=== PATIENT | male | born 1985 | race Caucasian/White ===

== ENCOUNTER 2017-12-31 17:21 | Observation (INO) | payer BC ==
[2017-12-31 19:41] LABS: ABS Basophils 0.1 10^3/ul (0-0.2); ABS Eosinophils 0.1 10^3/ul (0-0.6); ABS Lymphocytes 1.2 10^3/ul (1.0-4.8); ABS Neutrophils 9.7 10^3/ul (1.5-7.7); ABS Nucleated RBC 0.1 10^3/ul; Eosinophil % 0.8 % (0-6); Hematocrit 43 % (42-52); Hemoglobin 14.7 g/dl (14.0-18.0); Lymphocyte % 10.3 % (25-47); Mean Corpuscular HGB Conc 34 g/dl (31-36); Mean Corpuscular Hemoglobin 29 pg (27-31); Mean Corpuscular Volume 86 fL (80-94); Mean Platelet Volume 7.6 um3 (7.4-10.4); Nucleated Red Blood Cells % 0.5; Platelet Count 308 10^3/ul (150-450); Red Blood Count 5.02 10^6/ul (4.00-5.40); Red Cell Distribution Width 13 % (10.5-15); White Blood Count 12.1 10^3/ul (3.5-10.8)
--- NOTE | 2017-12-31 19:50 | ED ---
HPI Chest Pain - HPI Summary HPI Summary: This is gerson Luna documenting for attending Charanjit Garcia MD. This patient is a 32 year old M presenting to [facility] with a chief complaint of sharp chest wall pain since 5-6 days ago. The patient reports coughing up red phlegm this morning. The patient notes that his pain started in left side and has radiated to lower back, lower right chest, and upper right chest. The patient notes that the pain has worsened in the last few days. The patient rates the pain 7/10 in severity. Symptoms aggravated by lying down, coughing and deep breaths. Symptoms alleviated by nothing. Patient reports cough, shortness of breath, fever, chills, and lightheadedness. Patient denies nausea or vomiting. The patient was seen at Urgent Care last week after the 2nd day of pain and has been taking muscle relaxers for the pain. He reports that the muscle relaxers initially helped but have not been able to alleviate his symptoms in the last few days. Patient has hx of DVT following an ACL surgery. - History of Current Complaint Chief Complaint: EDChestWallPain Time Seen by Provider: 12/31/17 19:30 Hx Obtained From: Patient Onset/Duration: Started Days Ago - 5-6 days, Atraumatic, Still Present Timing: Constant Initial Severity: Mild Current Severity: Moderate Pain Intensity: 7 Pain Scale Used: 0-10 Numeric Chest Pain Location: Diffuse Chest Pain Radiates: Yes Chest Pain Radiates To:: Back - lower back Character: Burning, Sharp/Stabbing Aggravating Factor(s): Position - lying down, Deep Breaths, Other: - cough Alleviating Factor(s): Nothing Associated Signs and Symptoms: Positive: Chest Pain, Shortness of Breath, Fever , Chills, Lightheadedness, Cough, Productive Cough, Bloody Sputum. Negative: Nausea, Vomiting - Allergy/Home Medications Allergies/Adverse Reactions: Allergies Allergy/AdvReac Type Severity Reaction Status Date / Time cefaclor [From [facility]] Allergy Unknown Verified 12/31/17 19:29 Reaction Details ibuprofen Allergy Hives Verified 12/31/17 19:29 Home Medications: Home Medications NK [No Home Medications Reported] 12/31/17 [History Confirmed 12/31/17] PMH/Surg Hx/FS Hx/Imm Hx Endocrine/Hematology History: Denies: Hx Diabetes Cardiovascular History: Reports: Hx Deep Vein Thrombosis - follow ACL surgery Respiratory History: Denies: Hx Chronic Obstructive Pulmonary Disease (COPD) EENT History: Denies: Hx Deafness - Surgical History Surgery Procedure, Year, and Place: ACL surgery - Immunization History Date of Tetanus Vaccine: unk Date of Influenza Vaccine: unk Infectious Disease History: No Infectious Disease History: Reports: Traveled Outside the [place] in Last 30 Days - [place] - Family History Known Family History: Positive: None - patient denies any FHx - Social History Alcohol Use: Occasionally Substance Use Type: Reports: Marijuana - occasional use Smoking Status (MU): Never Smoked Tobacco Review of Systems Positive: Fever, Chills Positive: Chest Pain Positive: Shortness Of Breath, Cough, Other - bloody sputum Negative: Vomiting, Nausea Neurological: Other - lightheadedness All Other Systems Reviewed And Are Negative: Yes Physical Exam - Summary Physical Exam Summary: Appearance: Well-appearing, Well-nourished, lying in bed comfortably Skin: Warm, dry, no obvious rash, no surface signs of inflammation, no rashes Eyes: sclera anicteric, no conjunctival pallor ENT: mucous membranes moist, pharynx appears normal Neck: Supple, nontender Respiratory: No signs of respiratory distress, right basilar rhonchi Cardiovascular: Normal S1, S2. No murmurs. Normal distal pulses in tibial and radial bilaterally. Abdomen: Soft, nontender, normal active bowel sounds present Musculoskeletal: Normal, Strength/ROM Intact Neurological: A&Ox3, awake and alert, mentation is normal, speech is fluent and appropriate Psychiatric: affect is normal, does not appear anxious or depressed Triage Information Reviewed: Yes Vital Signs On Initial Exam: Initial Vitals Temp Pulse Resp BP Pulse Ox 98.7 F 101 16 133/76 96 12/31/17 18:00 12/31/17 18:00 12/31/17 18:00 12/31/17 18:00 12/31/17 18:00 Vital Signs Reviewed: Yes Diagnostics - Vital Signs Vital Signs Temp Pulse Resp BP Pulse Ox 12/31/17 18:00 98.7 F 101 16 133/76 96 - Laboratory Lab Results: Lab Results 12/31/17 Range/Units 19:31 WBC 12.1 H (3.5-10.8) 10^3/ul RBC 5.02 (4.00-5.40) 10^6/ul Hgb 14.7 (14.0-18.0) g/dl Hct 43 (42-52) % MCV 86 (80-94) fL MCH 29 (27-31) pg MCHC 34 (31-36) g/dl RDW 13 (10.5-15) % Plt Count 308 (150-450) 10^3/ul MPV 7.6 (7.4-10.4) um3 Neut % (Auto) 79.9 (38-83) % Lymph % (Auto) 10.3 L (25-47) % Whiteside % (Auto) 8.5 H (0-7) % Eos % (Auto) 0.8 (0-6) % Baso % (Auto) 0.5 (0-2) % Absolute Neuts (auto) 9.7 H (1.5-7.7) 10^3/ul Absolute Lymphs (auto) 1.2 (1.0-4.8) 10^3/ul Absolute Monos (auto) 1.0 H (0-0.8) 10^3/ul Absolute Eos (auto) 0.1 (0-0.6) 10^3/ul Absolute Basos (auto) 0.1 (0-0.2) 10^3/ul Absolute Nucleated RBC 0.1 10^3/ul Nucleated RBC % 0.5 Result Diagrams: 12/31/17 19:31 12/31/17 19:31 Lab Statement: Any lab studies that have been ordered have been reviewed, and results considered in the medical decision making process. - Radiology CXR Xray Interpretation: Positive (See Comments) - IMPRESSION: INTERSTITIAL PROMINENCE, LIKELY INTERSTITIAL EDEMA, WITH BIBASILAR INFILTRATES AND PLEURAL EFFUSIONS. Dr. Garcia has reviewed this report Radiology Interpretation Completed By: Radiologist - CT Chest/thorax CTA CT Interpretation: Positive (See Comments) - Impression: 1) moderate amount of clot located in the left lower lobe pulmonary artery. This is associated with consolidation and volume loss of the left lower lung. Moderate size left pleural effusion. 2) There is clot located in the right lower lobe pulmonary arteries in which there are areas of atelectasis as well as a small pleural effusion. An area of atelectasis is also seen in the right middle lung. 3) No heart strain. Dr. Garcia has reviewed this report. CT Interpretation Completed By: Radiologist - EKG 19:48 Cardiac Rate: Tachycardia - at 100 bpm EKG Rhythm: Sinus Tachycardia ST Segment: Normal Ectopy: None Chest Pain Course/Dx - Diagnoses Provider Diagnoses: Bilateral pulmonary embolism - Provider Notifications Discussed Care Of Patient With: Fanta Puckett Time Discussed With Above Provider: 20:32 Instructed by Provider To: Admit As Inpatient Discharge - Sign-Out/Discharge Documenting (check all that apply): Patient Departure - Discharge Plan Condition: Stable Disposition: ADMITTED TO [facility] - Billing Disposition and Condition Condition: STABLE Disposition: Admitted to [facility]
--- NOTE | 2017-12-31 19:51 | RAD ---
INDICATION: Hemoptysis COMPARISON: None TECHNIQUE: PA and lateral dual-energy views were obtained. FINDINGS: Bones/Soft Tissues: There are no acute bony findings. Cardiomediastinal: The heart is normal in size. Interstitium is prominent. Consider interstitial congestion in the appropriate setting.. Lungs: There are bibasilar interstitial infiltrates. Pleura: Bilateral pleural effusions. Other: None IMPRESSION: INTERSTITIAL PROMINENCE, LIKELY INTERSTITIAL EDEMA, WITH BIBASILAR INFILTRATES AND PLEURAL EFFUSIONS.
[2017-12-31] MEDS ORDERED: Azithromycin IV(*) 500 MG in NS 0.9% 250 ML* 250 ML IVPB ONE (19:59)
[2017-12-31] MEDS ORDERED: Iohexol 350* (CONTRAST) 500 ML MDV IV ONE (20:16)
[2017-12-31] MEDS ORDERED: NS 0.9% 1000 ML* 2,000 ML IV ONE (20:29)
[2017-12-31] MEDS ORDERED: Ketorolac INJ* 15 MG/ML 1 ML VIAL ONE (20:48)
[2017-12-31] MEDS ORDERED: Morphine VIAL* 4 MG/ML VIAL (1 ml vial) IV ONE (20:52)
[2017-12-31] MEDS ORDERED: Morphine VIAL* 10 MG/ML 1 ML VIAL ONE (20:57)
[2017-12-31] MEDS ORDERED: Morphine VIAL* 4 MG/ML VIAL (1 ml vial) IV PRN (21:19)
[2017-12-31] MEDS ORDERED: Ondansetron INJ* 2 MG/ML VIAL IV PRN (21:19)
[2017-12-31] MEDS ORDERED: HYDROmorphone INJ* 1 MG/ML CARPUJECT SYRINGE IV SLOW PU ONE (21:30)
[2017-12-31] MEDS ORDERED: NS 0.9% 1000 ML* 1,000 ML IV SCH (21:30)
[2017-12-31] MEDS ORDERED: Heparin VIAL(*) 5000 UNITS/ML VIAL (FIVE THOUSAND) SUBCUT SCH (22:00)
[2017-12-31 22:39] LABS: Urine Appearance Clear; Urine Blood 3+ (Negative); Urine Color Yellow; Urine Ketones Negative (Negative); Urine Protein Negative (Negative); Urine Red Blood Cell 1+(3-5/hpf) (Absent); Urine Specific Gravity 1.013 (1.010-1.030); Urine Urobilinogen Negative (Negative); Urine White Blood Cell Trace(0-5/hpf) (Absent)
[2018-01-01] MEDS: Levofloxacin 750 MG IVPREMIX(* 750 MG/150 ML BAG IVPB SCH ×2 (00:29→23:50)
[2018-01-01] MEDS: Enoxaparin(*) 100 MG/ML SYR SUBCUT SCH ×3 (00:30→21:40)
--- NOTE | 2018-01-01 02:40 | HP ---
HISTORY AND PHYSICAL: DATE OF ADMISSION: 12/31/17 PRIMARY CARE PHYSICIAN: None. ATTENDING PHYSICIAN WHILE IN THE PRINCIPAL: Fanta Puckett DO * (report dictated by Vahid Chan NP). CHIEF COMPLAINT: 1. Chest discomfort. 2. Epigastric pain. HISTORY OF PRESENT ILLNESS: Mr. Benjamin is a 32-year-old male patient, who has a history of DVT following ACL repair several years ago and this is only his medical history. He does not take medications, and he does not typically see a primary care provider. He comes in to the ED today. He says he has been having some chest discomfort. In addition, he has feeling of sharp stabbing pain in the epigastric area. Now, it is mostly localized to his left chest. He states he feels tight like things are pulling into his left shoulder. He states he has been having chills but he has not been having any documented fevers that he knows of. He does state that he lost maybe about 10 pounds over the last couple of weeks. He was in [facility] and he says he was doing a lot of walking. He recently flew to [facility] and spent two weeks there and then he flew back and he was over there for his sister's wedding. He is coming in today because the discomfort just was not getting better. He was concerned, because of this, he says, he also did cough up some blood today. He says to his knowledge he has not been around anybody sick. He has not been having any diarrhea, no vomiting. He says his lower abdominal pain is mostly in the epigastric area, his left chest, left shoulder area. He was concerned because the pain just was not getting any better, it is worse when he tries to lie flat. He came in to our emergency department today, he was evaluated. The patient was ultimately found to have an elevated white count. It was also noted that he had a bump in troponin, his lactic acid was high. He had bilateral effusion that was concerning for possible infection versus PEs. We were asked to evaluate for admission. PAST MEDICAL HISTORY: Significant for DVT after an orthopedic procedure. PAST SURGICAL HISTORY: He has had a cyst removal to his neck. He has had a right knee ACL repair x2, recent tonsillectomy. HOME MEDICATIONS: Denied. ALLERGIES TO MEDICATIONS: Include CECLOR and IBUPROFEN. FAMILY HISTORY: He denies his parents having history of blood clotting disorder , strokes, heart attacks. Reviewed and was noncontributory. SOCIAL HISTORY: He does smoke marijuana occasionally. He drinks alcohol occasionally. He does not smoke cigarettes. He denies any illicit drug use. He is not , has no children. Surrogate decision makers are his parents. REVIEW OF SYSTEMS: There is no documented fever. He does admit to having chills. He does admit to having 10-pound weight loss over the 2 weeks. Denies having any double vision. There is no ear discharge. He denies having any rhinorrhea. There was no sore throat or thyroid enlargement. He does admit to having chest pressure per my HPI. Denies having any abdominal pain. He denies having any nausea or vomiting. There has been no dysuria, no frequency. There has been no seizure, no loss of consciousness, no pruritus, and no skin ulcerations. Review of 14 systems was completed, all others negative. PHYSICAL EXAMINATION GENERAL: At this time, Mr. Benjamin is a 32-year-old male patient. He is sitting in the ED stretcher. He does not appear to be in any acute distress. He appears to be well nourished, well developed. VITAL SIGNS: Blood pressure 141/93, pulse 102, respirations 17, O2 sat 96%, temperature 98.7. HEENT: Head: Atraumatic and normocephalic. Eyes: EOMs are intact. Sclerae anicteric and not pale. Throat: Oral mucosa appears moist. No oropharyngeal erythema. NECK: Supple. LUNGS: Clear but they are diminished in the bases. No wheezes, rales, or rhonchi. HEART: Sounds S1, S2. He had a regular rate and rhythm. No murmurs, rubs, or gallops. ABDOMEN: Soft, flat, nontender. Bowel sounds were present. EXTREMITIES: Pulses were 2+ throughout. He is moving all four extremities. He had no peripheral edema. He had 5/5 strength. No calf tenderness. NEUROLOGIC: He is awake, alert, and oriented x3. Speech is clear. Tongue is midline. No gross focal deficits. SKIN: Intact. DIAGNOSTIC STUDIES/LABORATORY DATA: WBC of 12.1, RBC of 5.02, hemoglobin of 14.7, hematocrit of 43, platelet count of 308. Sodium 137, potassium 3.9, chloride 95, bicarb 31. BUN 11 and creatinine of 0.88. Glucose 156. Lactate was 3.2. Calcium 9.7. Total bili 1.2, AST 21, ALT 30, alk phos 48. Troponin 0.04. CRP pending. Albumin 3.9. He did have a chest x-ray obtained today, when I reviewed it, I do appreciate bilateral pleural effusion. Radiology is reading this as interstitial prominence likely interstitial edema with bibasilar infiltrates and pleural effusions. He did have an EKG obtained today. I do not have a previous EKG for comparison , but the EKG today is showing a normal sinus rhythm. He does have what appears to be LVH. He had no ST elevation with exception in V1 only, which is slight. He had no T-wave inversions. No previous EKGs for comparison. Old medical records were reviewed. ASSESSMENT AND PLAN: Mr. Benjamin is a 32-year-old male patient coming into the emergency department today with complaints of chest discomfort, not feeling well, also having epigastric discomfort. On evaluation found to have an elevated white count, troponin elevation. In addition to this, elevated lactic acid of unclear etiology and bilateral effusion. He will be admitted under observation status for: 1. Chest discomfort. I suspect this is probably related to either a pericarditis or costochondritis or possibly pleurisy related to his pulmonary process. I am concerned for the hemoptysis that he had. The plan will be to get a CT of the chest and make sure he has no pulmonary embolism that would certainly explain the troponin being elevated. It could also explain the white count, possibly the effusion. He may have pneumonia as well. Again, the CT will help us with this. I am going to put him on Levaquin empirically. He has been hydrated. I will get Legionella antigen, Strep pneumoniae antigen, sputum cultures. I will try to get blood cultures as well. I will put him on antibiotics and I will continue to follow. 2. Elevated troponin. Etiology is unclear. He is not having any active chest pain now. If he does have it, it is in the left shoulder, described as a sharp , stabbing pain. His EKG does not show signs of ischemia. At this point, we are going to trend his troponin, we will get an echo in the morning, checking ESR and CRP and we will continue to follow this. 3. History of deep vein thrombosis. I will place him on heparin subcu for prophylaxis. 4. Lactic acidosis. Etiology is unclear. He is getting hydrated. He is being placed empirically on antibiotics. We will go ahead and continue to follow. 5. Hemoptysis. Again, I think a CTA of the chest is warranted. He is undergoing that now. We will continue to follow. Depending on the findings, we just may need to consider getting Pulmonology involve. 6. Fluids, electrolytes, and nutrition. He can have regular diet. 7. Code status: Full code. TIME SPENT: Time spent on the admission was 60 minutes, greater than half the time was spent [id number] with the patient obtaining my history and physical, other half of the time was spent going over the plan of care with the patient and implementing the plan of care. I did discuss the plan of care with my attending, Dr. Puckett, she is in agreement. VAHID CHAN, LORRAINE [id number]/CPS #: [id number] MICHAEL
[2018-01-01] MEDS: Cyclobenzaprine TAB* 10 MG PO SCH ×3 (02:57→21:37)
[2018-01-01] MEDS: HYDROcodone/ACETAMIN 5-325 MG* 1 TAB PO PRN ×4 (02:58→21:35)
[2018-01-01 05:38] LABS: ABS Basophils 0.1 10^3/ul (0-0.2); ABS Eosinophils 0.1 10^3/ul (0-0.6); ABS Lymphocytes 1.6 10^3/ul (1.0-4.8); ABS Monocytes 1.1 10^3/ul (0-0.8); ABS Neutrophils 6.7 10^3/ul (1.5-7.7); ABS Nucleated RBC 0 10^3/ul; Eosinophil % 0.9 % (0-6); Hematocrit 39 % (42-52); Hemoglobin 13.4 g/dl (14.0-18.0); Lymphocyte % 16.4 % (25-47); Mean Corpuscular HGB Conc 35 g/dl (31-36); Mean Corpuscular Hemoglobin 29 pg (27-31); Mean Corpuscular Volume 84 fL (80-94); Mean Platelet Volume 7.3 um3 (7.4-10.4); Nucleated Red Blood Cells % 0.1; Platelet Count 293 10^3/ul (150-450); Red Blood Count 4.58 10^6/ul (4.00-5.40); Red Cell Distribution Width 13 % (10.5-15); White Blood Count 9.5 10^3/ul (3.5-10.8)
[2018-01-01 05:57] LABS: EGFR Non-African American 129.4 (>60)
--- NOTE | 2018-01-01 07:50 | RAD ---
INDICATION: Hemoptysis. Bilateral pleural effusions. Clinical concern for pulmonary embolism. COMPARISON: December 31, 2017 chest radiograph. TECHNIQUE: Multidetector CT images were obtained from the lung apices to the upper abdomen with 74 mL Omnipaque 350 IV contrast. Pulmonary angiogram protocol. Multiplanar reformation including with maximum intensity projection. REPORT: LEFT greater than RIGHT basilar alveolar consolidation in part due to atelectasis resulting from moderate dependent LEFT and small dependent RIGHT pleural effusions. Negative for pneumothorax. Negative for thoracic lymphadenopathy, cardiomegaly, or pericardial effusion. Accounting for motion artifact the thoracic aorta is normal. Large burden of bilateral acute pulmonary emboli with the largest burden of clot within the main LEFT lower lobe and segmental pulmonary arteries. Unremarkable images through the upper abdomen. Negative for suspicious thoracic osseous lesions or fractures. IMPRESSION: #. Large burden of acute pulmonary emboli with associated probable ischemic lung most marked involving the basilar segments of the LEFT lower lobe. Associated moderate dependent LEFT and small dependent RIGHT pleural effusions with proportional atelectasis.
--- NOTE | 2018-01-01 08:54 | PN ---
Subjective Date of Service: 01/01/18 Interval History: Complains of pain with ambulation, feeling short of breath when he walks to the bathroom, and pain in both flanks when he takes a deep breath. No cough, no documented hypoxia overnight, no fevers, no leg pain. Objective Active Medications: Hydrocodone Bitart/Acetaminophen (Dorothy 5-325 Tab*) 2 tab PO Q4H PRN PRN Reason: PAIN Last Admin: 01/01/18 02:58 Dose: 2 tab Cyclobenzaprine HCl (Flexeril Tab*) 10 mg PO Q8H [facility] Last Admin: 01/01/18 02:57 Dose: 10 mg Enoxaparin Sodium (Lovenox(*)) 90 mg SUBCUT Q12H [facility] Last Admin: 01/01/18 00:30 Dose: 90 mg Levofloxacin/Dextrose (Levaquin 750 Mg Ivpremix(*)) 750 mg in 150 mls @ 100 mls /hr IVPB Q24H [facility] Last Admin: 01/01/18 00:29 Dose: 100 mls/hr Morphine Sulfate (Morphine Vial*) 4 mg IV Q4H PRN PRN Reason: PAIN Last Admin: 01/01/18 00:04 Dose: 4 mg Ondansetron HCl (Zofran Inj*) 4 mg IV Q6H PRN PRN Reason: NAUSEA Vital Signs - 8 hr 01/01/18 01/01/18 01/01/18 01:22 02:57 02:58 Temperature Pulse Rate Respiratory 18 19 18 Rate Blood Pressure (mmHg) O2 Sat by Pulse Oximetry 01/01/18 01/01/18 01/01/18 04:03 05:56 05:57 Temperature 100.0 F Pulse Rate 106 Respiratory 16 18 18 Rate Blood Pressure 126/71 (mmHg) O2 Sat by Pulse 92 Oximetry 01/01/18 01/01/18 05:58 05:59 Temperature Pulse Rate Respiratory 18 18 Rate Blood Pressure (mmHg) O2 Sat by Pulse Oximetry Oxygen Devices in Use Now: None Appearance: alert, well appearing young man Eyes: No Scleral Icterus Ears/Nose/Mouth/Throat: NL Teeth, Lips, Gums Neck: NL Appearance and Movements; NL JVP Respiratory: Symmetrical Chest Expansion and Respiratory Effort, - - decreased breath sounds both bases, no crackles Cardiovascular: NL Sounds; No Murmurs; No JVD, RRR, - - no heaves or lifts Abdominal: NL Sounds; No Tenderness; No Distention Lymphatic: No Cervical Adenopathy Extremities: No Edema, No Clubbing, Cyanosis Skin: No Rash or Ulcers Neurological: Alert and Oriented x 3 Result Diagrams: 01/01/18 05:29 01/01/18 05:29 Additional Lab and Data: Lab Results 12/31/17 Range/Units 19:31 WBC 12.1 H (3.5-10.8) 10^3/ul RBC 5.02 (4.00-5.40) 10^6/ul Hgb 14.7 (14.0-18.0) g/dl Hct 43 (42-52) % MCV 86 (80-94) fL MCH 29 (27-31) pg MCHC 34 (31-36) g/dl RDW 13 (10.5-15) % Plt Count 308 (150-450) 10^3/ul MPV 7.6 (7.4-10.4) um3 Neut % (Auto) 79.9 (38-83) % Lymph % (Auto) 10.3 L (25-47) % Giles % (Auto) 8.5 H (0-7) % Eos % (Auto) 0.8 (0-6) % Baso % (Auto) 0.5 (0-2) % Absolute Neuts (auto) 9.7 H (1.5-7.7) 10^3/ul Absolute Lymphs (auto) 1.2 (1.0-4.8) 10^3/ul Absolute Monos (auto) 1.0 H (0-0.8) 10^3/ul Absolute Eos (auto) 0.1 (0-0.6) 10^3/ul Absolute Basos (auto) 0.1 (0-0.2) 10^3/ul Absolute Nucleated RBC 0.1 10^3/ul Nucleated RBC % 0.5 Microbiology and Other Data: Microbiology 12/31/17 22:24 Legionella Urinary Antigen - Final Urine Negative Legionella Antigen Streptococcus pneumoniae Ag Screen - Final Negative S. pneumo Antigen Assess/Plan/Problems-Billing Assessment: 32 yo man with remote history of DVT after knee surgery but otherwise healthy presented to the ED on 12/31 with shortness of breath, found to have large burden of PE. - Patient Problems (1) Pulmonary emboli Current Visit: Yes Status: Acute Code(s): I26.99 - OTHER PULMONARY EMBOLISM WITHOUT ACUTE COR PULMONALE SNOMED Code(s): 87788893 Comment: He did have a flight from [place] about 3 weeks ago, but given his otherwise active healthy lifestyle, no cigarettes, and the burden of clot, I am hesitant to call these provoked thromboemboli He has one cousin with unprovoked VTE He is currently on lovenox and tolerating well I am consulting hematology; discussed with Dr. Max He is on room air at this time but is quite limited functionally
--- NOTE | 2018-01-01 14:09 | CONS ---
AMENDED REPORT NOW INCLUDES DATE OF CONSULT - ESIGNED BEFORE ADJUSTMENT CONSULTATION REPORT: DATE OF CONSULT: 01/01/18 REASON FOR CONSULT: Pulmonary embolus. HISTORY OF PRESENT ILLNESS: A 32-year-old male with a history of DVT following ACL repair when he was 20 years old, treated briefly with anticoagulation. No thrombotic events until recently. He has generally been very healthy, he does not see a doctor on a regular basis. Approximately 1 week ago, he started to develop a spastic and cramping pain on his right side. It would come and go, exacerbated by stretching on a movement. After several days, it spread to the left side and the left pain became worse than the right. He was seen at Urgent Care and thought it was muscle cramp. He was given a muscle relaxant, which seemed to help. Over the past several days, the pain got worse and worse. 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 He has not been able to take a deep breath because breathing in would cause a pleuritic pain. Other than not being able to take a big breath, he has not noticed being short of breath. Yesterday, he had an episode of hemoptysis and that triggered coming to the emergency room. He has no extremity swelling or pain. No palpitations and no chest pressure other than the pain described. The CT scan showed a left lower lobe DVT as well as some thrombosis on the right side. He has areas of consolidation and question of pulmonary infarction. There is no thoracic lymphadenopathy. He was admitted and started on subcu Lovenox. He got his first shot of Lovenox yesterday and today he does feel better with increased ability to take a deep breath and less cramping pain. MEDICATIONS: Nothing prior to admission. He is on Lovenox 90 mg subcu q.12. ALLERGIES: None. PAST MEDICAL HISTORY: ACL repair, accompanied by DVT. PAST SURGICAL HISTORY: Tonsillectomy and knee surgery. FAMILY HISTORY: No thrombosis. No malignancy. SOCIAL HISTORY: Lives in [place], [place], was visiting [place] and [facility]. He smokes pot occasionally, but does not smoke cigarettes. He drinks socially. He is not , but has supportive parents at home. 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 REVIEW OF SYSTEMS: As noted above. Otherwise, 14 points reviewed and negative. PHYSICAL EXAM: Temperature 100.0, BP 126/71, pulse 106, sat 92%, respirations 16. HEENT: Mucosa is moist. No lesions. No lymphadenopathy. No dental disease. No JVD. Lungs: Some decreased breath sounds on the left and scattered crackles. No wheezing. He was able to take a fairly deep breath without pain. He did have oral pain medication prior to the exam. Heart: Regular rhythm, S1, S2. No murmurs or gallops. Abdomen is nontender, nondistended. No hepatosplenomegaly. Nodes: No peripheral lymphadenopathy. Extremities: No clubbing, cyanosis or edema. Good pulses x4. Neurologically, alert and oriented and grossly nonfocal. DIAGNOSTIC STUDIES/LAB DATA: CT scan as noted above. His CBC is essentially normal, hemoglobin 13.4. Chemistry showed normal renal function, normal liver function. 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 This is his second thrombosis, the first being semi-provoked after minor knee surgery. 1. Lovenox 90 subcu b.i.d. I would continue for 2 to 3 weeks until symptoms clearly improve. We will then change to Xarelto 20 mg p.o. in the evening with dinner. 2. Discussed need for long-term anticoagulation. This is idiopathic thrombosis with high risk of additional thrombosis. This is regardless of evaluation going forward. He will follow up with a software development engineer in [place] but my recommendation is for anticoagulation for indeterminate period of time. There is data for reduced dose Xarelto at 10 mg daily after 6-12 months. 3. Thrombophilia evaluation. Leiden V and prothrombin gene mutation, but we will wait until he sees his software development engineer in [place] to do this. Results will not affect decisions regarding anticoagulation. We will send a lupus anticoagulant. Protein C, protein S, and ATIII are reasonable to send at some point if he needs to be of anticoagulation for other reasons. 4. Pain will last several weeks, he can go home with p.r.n. Percocet. I would advise not traveling for at least 1 week and delaying his return to [place]. 5. Echocardiogram pending for tomorrow. I suspect he will have some amount of right heart strain and he will need followup study in 2-3 months. 6. Hematuria. We can recheck in a week or so to make sure that is resolved. Could have occult kidney stones. Will obtain a renal ultrasound. 7. We will see him in clinic next week after discharge before he returns to [place]. [id number]/[facility] #: [id number] MICHAEL
--- NOTE | 2018-01-01 16:19 | RAD ---
Indication: Hematuria. Bilateral flank pain. Comparison: No relevant prior exams available on the [facility] [place]. Technique: Renal ultrasound. Report: 10.4 x 5.6 x 5.9 cm RIGHT kidney and 12.0 x 5.4 x 5.8 cm LEFT kidney. Normal bilateral renal cortical contour and echogenicity. No conspicuous stones or hydronephrosis. No conspicuous focal renal lesions. Negative for perinephric fluid. IMPRESSION: #. Negative bilateral renal ultrasound.
[2018-01-02] MEDS: HYDROcodone/ACETAMIN 5-325 MG* 1 TAB PO PRN ×2 (06:26→10:35)
[2018-01-02] MEDS: Cyclobenzaprine TAB* 10 MG PO SCH (06:27)
--- NOTE | 2018-01-02 09:45 | ECHO ---
Patient: DEZ MEDEROS [facility] Rec#: [id number] : 1985 Date: 01/02/2018 Age: 32y Height: 187.96 cm / 74.0 in Weight: 86.18 kg / 189.9 lbs Sex: M BSA: 2.13 Room#: [facility] Admit Date#: 12/31/2017 Type: Inpatient Referring: Vahid Forbes NP Reading: Connor Hwang DO Security Orderly: Kylah Nash RDCS CC: Akash Max MD Transthoracic Echocardiogram Indication: Chest Pain, pulmonary embolism BP: 127/77 HR: 88 Rhythm: NSR Findings History: Prior DVT. Technical Comments: The study quality is good. Completed at 0930. Left Ventricle: The left ventricular chamber size is normal. There is no left ventricular hypertrophy. Global left ventricular wall motion and contractility are within normal limits. Left ventricular systolic function is at the lower limits of normal. The estimated ejection fraction is 50-55%. Normal left ventricular diastolic filling is observed. Left Atrium: The left atrial chamber size is normal. Right Ventricle: The right ventricle is slightly dilated. The right ventricular global systolic function is mildly to moderately reduced. Right Atrium: The right atrial cavity size is normal. Aortic Valve: The aortic valve is trileaflet. There is no evidence of aortic valve thickening. There is no evidence of aortic regurgitation. There is no evidence of aortic stenosis. Mitral Valve: The mitral valve leaflets do not appear thickened. There is a trace of mitral regurgitation. There is no evidence of mitral stenosis. Tricuspid Valve: The tricuspid valve leaflets are normal. There is a physiologic tricuspid regurgitation. Unable to estimate the right ventricular systolic pressure. There is no tricuspid stenosis. Pulmonic Valve: The pulmonic valve appears normal. There is a trace pulmonic regurgitation. There is no pulmonic stenosis. Pericardium: There is no significant pericardial effusion. Aorta: There is no dilatation of the ascending aorta. There is no dilatation of the aortic arch. The aortic root is normal in size. Pulmonary Artery: The main pulmonary artery is not well visualized. Venous: The inferior vena cava appears normal in size. There is a greater than 50% respiratory change in the inferior vena cava dimension. Conclusions The left ventricular chamber size is normal. There is no left ventricular hypertrophy. Left ventricular systolic function is at the lower limits of normal. The estimated ejection fraction is 50-55%. Global left ventricular wall motion and contractility are within normal limits. The left atrial chamber size is normal. The right ventricle is slightly dilated. The right ventricular global systolic function is mildly to moderately (more consistent with moderately) reduced. There is a physiologic tricuspid regurgitation. Unable to estimate the right ventricular systolic pressure. None prior for comparison at time of interpretation Measurements Name Value Normal Range RVIDd (AP) 2D 3.2 cm (0.9 - 2.6) RAd ISD 4CH 4.9 cm (3.4 - 4.9) RA (A4C)W 4.3 cm (2.9 - 4.6) IVSd (2D) 1 cm (0.6 - 1) LVPWd (2D) 1 cm (0.6 - 1) LVIDd (2D) 4.3 cm (3.6 - 5.4) LVIDs (2D) 2.6 cm - LV FS (2D) 40 % (25 - 45) Aortic Annulus 2.2 cm (1.4 - 2.6) Ao root diameter (2D) 3.4 cm (2.1 - 3.5) Ascending Ao 3 cm (2.1 - 3.4) Aortic arch 2.2 cm (1.8 - 3.4) LA dimension (AP) 2D 3.3 cm (2.3 - 3.8) LAd ISD 4CH 5.3 cm (2.9 - 5.3) LA ISD 4CH W 4.1 cm (2.5 - 4.5) Name Value Normal Range LA ESV SP 4CH (A/L) 54 ml - LA ESV SP 2CH (A/L) 67 ml - LA ESV BP (A/L) 65 ml - LA ESV BP (A/L) index 31 ml/m2 - LA ESV SP 4CH (MOD) 37 ml - LA ESV SP 2CH (MOD) 65 ml - Name Value Normal Range MV E-wave Vmax 0.58 m/sec - MV deceleration time 160.4 msec - MV A-wave Vmax 0.43 m/sec - MV E:A ratio 1.33 ratio - LV septal e' Vmax 0.11 m/sec - LV lateral e' Vmax 0.12 m/sec - LV E:e' septal ratio 5.27 ratio - LV E:e' lateral ratio 4.83 ratio - Name Value Normal Range AV Vmax 1.2 m/sec - AV VTI 18.98 cm - AV peak gradient 5.45 mmHg - AV mean gradient 3 mmHg - LVOT Vmax 1.03 m/sec - LVOT VTI 17.19 cm - LVOT peak gradient 4.27 mmHg - LVOT mean gradient 2.44 mmHg - LEDY Vmax 1.3 m/sec - Name Value Normal Range IVC diameter 1.9 cm - Name Value Normal Range PV Vmax 1.04 m/sec - PV peak gradient 4.38 mmHg -
[2018-01-02] MEDS: Enoxaparin(*) 100 MG/ML SYR SUBCUT SCH (10:35)
[2018-01-02 11:46] VITALS: BP 122/72
--- NOTE | 2018-01-02 12:37 | PN ---
Subjective Date of Service: 01/02/18 Interval History: Mr. Benjamin reports feeling much better today. He has less pain and is not requiring oxygen. He denies chest pain, nausea, or abdominal pain. Objective Active Medications: Hydrocodone Bitart/Acetaminophen ([place] 5-325 Tab*) 2 tab PO Q4H PRN Cyclobenzaprine HCl (Flexeril Tab*) 10 mg PO Q8H ANAYA Enoxaparin Sodium (Lovenox(*)) 90 mg SUBCUT Q12H ANAYA Levofloxacin/Dextrose (Levaquin 750 Mg Ivpremix(*)) 750 mg in 150 mls @ 100 mls /hr IVPB Q24H ANAYA Morphine Sulfate (Morphine Vial*) 4 mg IV Q4H PRN Ondansetron HCl (Zofran Inj*) 4 mg IV Q6H PRN Oxygen Devices in Use Now: None Appearance: Male lying in bed in NAD Eyes: No Scleral Icterus Ears/Nose/Mouth/Throat: Mucous Membranes Moist Neck: Trachea Midline Respiratory: Symmetrical Chest Expansion and Respiratory Effort, Clear to Auscultation Cardiovascular: NL Sounds; No Murmurs; No JVD, No Edema Abdominal: NL Sounds; No Tenderness; No Distention Lymphatic: No Cervical Adenopathy Extremities: No Edema Skin: No Rash or Ulcers Neurological: Alert and Oriented x 3, NL Muscle Strength and Tone Nutrition: Taking PO's Result Diagrams: 01/01/18 05:29 01/01/18 05:29 Assess/Plan/Problems-Billing Assessment: Mr. Benjamin is a 32 yo man with remote history of DVT after knee surgery but otherwise healthy presented to the ED on 12/31 with shortness of breath, found to have large burden of PE. - Patient Problems (1) Pulmonary emboli Comment: - Asymptomatic. - He did have a flight from [place] about 3 weeks ago, but given his otherwise active healthy lifestyle, no cigarettes, and the burden of clot, I am hesitant to call these provoked thromboemboli - He has one cousin with unprovoked VTE - Appreciate consultation from Dr. Max. Continue lovenox x 3 weeks, then switch to xarelto. Patient will follow up with Hematology in [place] near his home. (2) Full code status Comment: Status and Disposition: OBV. Discharge to home.
--- NOTE | 2018-01-02 22:14 | DS ---
HOSPITAL MEDICINE DISCHARGE SUMMARY: DATE OF ADMISSION: 12/31/17. DATE OF DISCHARGE: 01/02/18. PRIMARY CARE PHYSICIAN: None. ATTENDING PHYSICIAN: Dr. Haritha Fortune * (dictation provided by Coral Matos NP ). PRIMARY DIAGNOSIS: Pulmonary emboli. SECONDARY DIAGNOSIS: History of deep vein thrombosis after orthopedic procedure. MEDICATIONS AT THE TIME OF DISCHARGE: 1. Lovenox 90 mg subcutaneously b.i.d. x3 weeks. 2. Xarelto 20 mg p.o. q.p.m. to start at the end of Lovenox therapy. 3. Hydrocodone with acetaminophen 5/325, 1 tab p.o. q.4 hours p.r.n. pain (30 tabs given). HOSPITAL COURSE: Mr. Benjamin is a 32-year-old male with past medical history of DVT associated with an orthopedic procedure, who presented to the hospital on 12/31/17, with concern for chest discomfort and epigastric pain. Please see the dictated H and P from Vahid Forbes NP, for complete details. In brief, the patient stated that he had been to [facility] about 3 to 4 weeks previously on a overnight, nonstop flight. His father who is at the bedside now reports that he did describe some leg pain, but was able to walk and ambulate normally while in [facility]. In the emergency room, he reported chest pain and epigastric discomfort. He was found to have an ESR of 69, white blood cell count of 12.1. He had a lactic acid of 3.2. Troponin was 0.04 and a CRP of 168.25. He was not hypoxic, but was tachycardic with the heart rate of 102. Blood pressure was stable. He had a chest x-ray, showed "interstitial prominence, likely interstitial edema with bibasilar infiltrates and pleural effusions." Mr. Benjamin went on for chest thorax CTA to rule out possible pneumonia and/ or pleural effusion, which showed the following: "Large burden of acute pulmonary emboli with associated probable ischemic lung, most marked involving the basilar segments of the left lower lobe, associated moderate dependent left and small, dependent right pleural effusions with proportions of atelectasis." The patient was started on Lovenox b.i.d. He went on for a transthoracic echocardiogram, which showed "The left ventricular chamber size is normal. There is no left ventricular hypertrophy. The estimated ejection is 50% to 55% . The right ventricle is slightly dilated and the right ventricular global systolic function is mildly to moderately reduced. There is a physiologic tricuspid regurgitation. Unable to estimate the right ventricular systolic pressure." Mr. Benjamin was seen in consultation by Dr. Max from Hematology and I will refer you to his note for complete details, but in brief, he agreed with the Lovenox and recommended that the patient can continue that for 2 to 3 weeks and then transition over the Xarelto 20 mg each evening. He recommended the need for long-term anticoagulation as well as followup in [place], [place] ( where the patient resides) for further workup of thrombophilia. Finally, the patient had flank pain, and 3+ blood in the urine and therefore he did go on for a renal ultrasound, which was negative. Mr. Benjamin is doing well today. He remains on room air. He is not hypoxic. His vital signs are stable. He is ambulating in the room independently. His pain is well controlled with hydrocodone. Mr. Benjamin is medically stable for discharge to home. He will be calling Dr. Max's office tomorrow for recommendation for finance lecturer at [place] and [place], [place] and then following up thereafter with them. DISPOSITION: To home. DIET: Regular. ACTIVITY: The patient is encouraged to avoid all aerobic activity until he follows up with Hematology and/or primary care physician. FOLLOWUP PLANS: Please follow up with Dr. Max tomorrow to find name of finance lecturer to follow up within [place]. The patient will need to follow up in [place] for thrombophilia evaluation and decision regarding need for a long- term anticoagulation. TIME SPENT: Approximately 60 minutes were spent on the discharge of this patient, more than half the time spent with the patient at bedside reviewing the events leading up to this hospitalization and during this hospitalization, performing the physical examination and reviewing my plan of care with him and his family including the recommendation to postpone his trip to [place] for 1 week. CORAL MATOS NP [id number]/[facility] #: [id number] MICHAEL
== END 2018-01-02 13:15 | disposition home or self-care (01) ==
LOC: ED 17:21 → MEDTELE 21:16
PROVIDERS: ADMIT Hospitalist; ATTEND Internal Medicine
DX: I26.99 Other pulmonary embolism without acute cor pulmonale (principal); Z86.718 Personal history of other venous thrombosis and embolism; R10.13 Epigastric pain; Z88.6 Allergy status to analgesic agent; Z88.8 Allergy status to other drugs, medicaments and biological substances; R04.2 Hemoptysis; E87.2 Acidosis
CPT/HCPCS: 36415; 71046; 71275; 76775; 80048; 80053; 81003; 81015; 83605; 83880; 84484; 85025; 85652; 86140; 87040; 87086; 87899; 93005; 93306; 96365; 99215; 99284; A9270-GY; G0378; J0456; J1650; J1885; J2270; Q9967